=== PATIENT | male | born 1995 | race African-American/Black ===

== ENCOUNTER 2021-06-10 20:12 | Emergency (ER) | payer OTHER ==
[~2021-06-10] VITALS: Ht 175.3 cm; Wt 68.0 kg
[2021-06-11 00:33] VITALS: BP 128/78
== END 2021-06-11 00:33 | DRG 563 ==
LOC: ED 20:12
PROC: 0RSJXZZ Reposition Right Shoulder Joint, External Approach (ICD-10-PCS; principal; 2021-06-10)
DX: S43.014A Anterior dislocation of right humerus, initial encounter (principal); Y35.813A Legal intervention involving manhandling, suspect injured, initial encounter; Y92.149 Unspecified place in prison as the place of occurrence of the external cause; Z20.822 Contact with and (suspected) exposure to COVID-19